=== PATIENT | female | born 2000 | race African-American/Black ===

== ENCOUNTER 2022-12-12 05:03 | Emergency (ER) | payer MEDICAID ==
[~2022-12-12] VITALS: Ht 160 cm; Wt 41.6 kg
[2022-12-12 05:11] VITALS: BP 103/59
[2022-12-12] MEDS ORDERED: TOPUD PO (05:54)
[2022-12-12] MEDS ORDERED: AMOX1TAB16 PO (05:54)
[2022-12-12] MEDS ORDERED: DOXY100T2 PO (05:54)
[2022-12-12] MEDS ORDERED: DOXYCYCLINE HYCLATE 100MG CAPSULE PO ONE (06:00)
[2022-12-12] MEDS ORDERED: CEFTRIAXONE SODIUM 1 G/VIAL IM ONE (06:00)
[2022-12-12] MEDS ORDERED: LIDOCAINE HCL 1% 20ML VIAL (Pyxis) INJ INFIL ONE (06:45)
[2022-12-14 05:11] LABS: NEISSERIA GONORRHOEAE NAA Negative (Negative)
== END 2022-12-12 07:09 | disposition home or self-care (01) ==
LOC: ER 05:03
DX: J02.9 Acute pharyngitis, unspecified (principal); B34.9 Viral infection, unspecified; F17.200 Nicotine dependence, unspecified, uncomplicated; Z20.822 Contact with and (suspected) exposure to COVID-19
CPT/HCPCS: 81025; 87070; 87210; 87426; 87430; 87491; 87591; 96372; 99283; C9803; J0696; J3490; Z7610